=== PATIENT | male | born 1975 | race Caucasian/White ===

== ENCOUNTER 2023-04-19 18:56 | Emergency (ER) | payer OTHER, SELFPAY ==
[2023-04-19 19:05] VITALS: BP 142/105
[2023-04-19 19:28] VITALS: BP 141/92
[2023-04-19 19:40] LABS: % Basophils 0.7 % (0-2); % Eosinophils 2.5 % (0-6); % Immature Granulocytes 0.3 % (0-0.5); % Lymphocytes 16.3 % (20.5-51.1); % Monocytes 8.5 % (1.7-9.3); % Neutrophils 71.7 % (42.2-75.2); Absolute Basophils 0.1 10^3/uL (0-0.2); Absolute Eosinophils 0.2 10^3/uL (0-0.7); Absolute Lymphocytes 1.1 10^3/uL (1.2-3.4); Absolute Monocytes 0.6 10^3/uL (0.1-0.6); Absolute Neutrophils 4.8 10^3/uL (1.4-6.5); Hematocrit 44.9 % (39.0-52.0); Hemoglobin 16.4 g/dL (13.0-18.0); Mean Corp Hgb Conc. 36.5 g/dL (33.0-37.0); Mean Corpuscular Hgb 30.8 pg (27.0-31.0); Mean Corpuscular Volume 84.4 fL (80.0-94.0); Nucleated Red Blood Cells % 0 % (-); Platelet Count 228 10^3/uL (130-400); Red Blood Cell Count 5.32 10^6/uL (4.70-6.10); Red Cell Dist. Width 12.1 % (11.5-14.5); White Blood Cell Count 6.7 10^3/uL (4.8-10.8)
[2023-04-19 19:55] LABS: ALT (SGPT) 48 U/L (0-50); AST (SGOT) 41 U/L (17-59); Albumin 4.8 g/dl (3.5-5.0); Alkaline Phosphatase 84 U/L (38-126); Blood Urea Nitrogen 19 mg/dl (9-20); Calcium 9.9 mg/dl (8.4-10.2); Carbon Dioxide 21 mmol/L (22-30); Chloride 104 mmol/L (98-107); Glucose 98 mg/dl (70-99); Potassium 3.9 mmol/L (3.5-5.1); Sodium 135 mmol/L (135-145); Total Bilirubin 0.7 mg/dl (0.2-1.3); Total Protein 7.9 g/dl (6.3-8.2); eGFR > 60.00
[2023-04-19 20:00] VITALS: BP 134/84
[2023-04-19 20:11] VITALS: BMI 31.9
[2023-04-19 21:00] VITALS: BP 127/86
[2023-04-19] MEDS: TORADOL 30 MG IV (21:32)
[2023-04-19 22:00] VITALS: BP 127/84
--- NOTE | 2023-04-19 22:47 | ED.GENMED ---
History of Present Illness
General
Chief Complaint: Headache
Source: patient
Exam Limitations: none
Time Seen by Provider: 04/19/23 19:07
Nursing documentation reviewed up to this point in time: agreed with
Travel History
Have you had any contact with someone who has COVID-19?: No
Do you have any symptoms of coronavirus? Fever > 100 degrees, chills, cough, shortness of breath, sore throat, loss of taste or smell, muscle aches, or headache?: No
History of Present Illness
History of Present Illness:
Patient to ED with complaint of atyypical head pain 2 days. Denies fever/chills, n/v/d. No blurred vison. Does not typically get headaches. This pain is in back of head. Unrelieved with OTC meds. Brought to ED by spouse for eval.
Past History
Past History
ED Past Medical History: None
ED Past Surgical History: Orthopedic (right achilles rupture repair)
Social History
Tobacco: Non-smoker
Personal: Single
Living: other (with karli)
Employment: Employed
Review of Systems
Review of Systems
Allergies reviewed?: Yes
All Other Systems: ROS reviewed and negative except as documented in HPI and ROS
Constitutional: Reports no symptoms
EENT: Reports no symptoms
Respiratory: Reports no symptoms
Cardiac: Reports no symptoms
ABD/GI: Reports no symptoms
: Reports no symptoms
Musculoskeletal: Reports no symptoms
Skin: Reports no symptoms
Neurological: Reports headache
Psychiatric: Reports no symptoms
Phy Exam
General Physical Exam
General Presentation: well appearing and no apparent distress
General age: appears stated age
General Skin: warm and dry
General Habitus: normal
Eye Exam
Eye Exam: PERRL, EOMI and conjunctiva normal
Neurological Exam
Neurological Exam: alert, oriented x3, no motor deficits, no sensory deficits and normal gait
Musculoskeletal Exam
Musculoskeletal Exam: full ROM and neuro vasc intact
Skin Exam
Skin Exam: normal color, warm/dry and no rash
Psychiatric Exam
Psychiatric Exam: normal mood/affect
Course
Orders/Labs/Results
Orders:
Orders
04/19/23 19:23
CT Head W/o Iv Contrast Urgent
Comment:
Reason For Exam: pain
04/19/23 19:33
Complete Blood Count/With Diff Urgent
Comprehensive Metabolic Panel Urgent
04/19/23 21:24
Ketorolac [Toradol] 30 mg IV NOW STA
Abnormal Lab Results
04/19/23
19:33
Absolute Lymphs (auto) 1.1 L 10^3/uL
(1.2-3.4)
Lymphocytes % 16.3 L %
(20.5-51.1)
Carbon Dioxide 21 L mmol/L
(22-30)
04/19/23 19:33
04/19/23 19:33
Vital Signs
Initial and Last Documented VS:
Initial Vital Signs
Temp Pulse Resp BP Pulse Ox
99.0 F 96 18 142/105 97
04/19/23 19:05 04/19/23 19:05 04/19/23 19:05 04/19/23 19:05 04/19/23 19:05
Last Documented Vital Signs
Temp Pulse Resp BP Pulse Ox
99.0 F 65 19 127/84 97
04/19/23 19:05 04/19/23 22:45 04/19/23 22:45 04/19/23 22:00 04/19/23 19:05
*Radiology
Radiology exam reviewed: radiology read reviewed
*Pulse Oximetry
Patient hypoxic: no
*Critical Care Note
Total Time (30-74mins, 75-104mins- exclusive of procedures): Not Applicable
ED Attending Note
-
Portions of this chart may have been created with voice recognition software.� Occasional wrong word or��sound alike� substitutions may have occurred due to the inherent limitations of voice recognition software.
Discharge Plan
Departure
Patient Disposition: Home (Routine Discharge)
Date of Disposition: 04/19/23
Time of Disposition: 21:39
Patient with high blood pressure during this ER visit?: No
Condition: Good
Covid-19: Not Applicable
Discharge Problem:
Headache
Instructions: Headache, Adult (DC)
Prescriptions:
No Action
hydrocodone-acetaminophen 1 TABLET tablet
1 tab PO Q4HPRN PRN (Reason: pain) Qty: 20 0RF
Referrals:
Abdias Deleon PA-C [Family Provider] - Tomorrow
Interventions
Interventions:
*Risk Screen - Suicide Last Done: 04/19/23 19:05
*General Assessment Last Done: 04/19/23 19:05
*Neglect/Abuse Screening Last Done: 04/19/23 19:05
ED- Fall Risk Assessment Last Done: 04/19/23 19:05
*ED COVID-19 Vaccine History Last Done: 04/19/23 19:05
*Nursing Disposition Last Done: 04/19/23 22:53
ED- Neurological Assessment Last Done: 04/19/23 20:12
Discharge Date and Time
Discharge Date/Time: 04/19/23 22:53
== END 2023-04-19 22:53 | disposition home or self-care (01) ==
LOC: EMR 18:56
PROVIDERS: Nurse Practitioner; EMERGENCY PHYSICIAN Emergency Medicine; FAMILY PHYSICIAN Physician Assistant Medical
DX: R51.9 Headache, unspecified (principal)
CPT/HCPCS: 99284; 96374; 70450; 80053; 85025

== ENCOUNTER 2024-01-17 19:15 | Emergency (ER) | payer OTHER, SELFPAY ==
[2024-01-17 19:16] VITALS: BP 151/101
[2024-01-17 19:37] VITALS: BP 160/95
--- NOTE | 2024-01-17 19:54 | ED.GENMED ---
History of Present Illness
General
Chief Complaint: Musculo-Skeletal Complaint
Time Seen by Provider: 01/17/24 19:34
History of Present Illness
History of Present Illness:
48-year-old male presents to the emergency department for evaluation of nontraumatic right knee and thigh swelling over the past several days. Went to urgent care and had a reportedly normal x-ray. Works primarily at a desk, denies any recent
fitness activities or exercise that may have caused the knee injury. Denies frequent kneeling or squatting. Pain is predominantly to the distal lateral quadriceps
Past History
Past History
ED Past Medical History: None
ED Past Surgical History: Orthopedic (right achilles rupture repair)
Social History
Tobacco: Non-smoker
Personal: Single
Living: other (with fiancee)
Employment: Employed
Review of Systems
Review of Systems
Allergies reviewed?: Yes
All Other Systems: ROS reviewed and negative except as documented in HPI and ROS
Phy Exam
Physical Exam
Physical Exam:
GEN: Well appearing, NAD, WDWN
HEENT: Oral mucosa moist, no scleral icterus
Cardiac: Regular rate
Lung: No respiratory distress, no tachypnea
MSK: Mild soft tissue swelling to the right knee at the distal lateral quadriceps. There is no joint effusion. Range of motion is normal however pain is primarily elicited with knee extension as well as forced knee flexion. No patellar tendon
discomfort on exam
Skin: Good color, no pallor or jaundice, no rashes
Neuro: AO x3, moves all extremities freely
Psych: Calm, cooperative
Course
Orders/Labs/Results
Orders:
Orders
01/17/24 19:54
Ketorolac [Toradol] 30 mg IM NOW STA
Vital Signs
Initial and Last Documented VS:
Initial Vital Signs
Temp Pulse Resp BP Pulse Ox
98 F 90 16 151/101 98
01/17/24 19:16 01/17/24 19:16 01/17/24 19:16 01/17/24 19:16 01/17/24 19:16
Last Documented Vital Signs
Temp Pulse Resp BP Pulse Ox
98.0 F 83 20 160/95 98
01/17/24 20:07 01/17/24 20:07 01/17/24 20:07 01/17/24 20:07 01/17/24 20:07
MDM/Problems Addressed
MDM/Problems Addressed:
This is likely a quadriceps tendinitis versus muscular injury, no knee joint effusion to suggest intra-articular pathology. No erythema or warmth to suggest myositis or cellulitis. Will treat supportively with NSAIDs and local compression,
recommend orthopedic follow-up
*Critical Care Note
Total Time (30-74mins, 75-104mins- exclusive of procedures): Not Applicable
ED Attending Note
-
Portions of this chart may have been created with voice recognition software.� Occasional wrong word or��sound alike� substitutions may have occurred due to the inherent limitations of voice recognition software.
Discharge Plan
Departure
Patient Disposition: Home (Routine Discharge)
Date of Disposition: 01/17/24
Time of Disposition: 19:54
Patient with high blood pressure during this ER visit?: No
Discharge Problem:
Quadriceps tendinitis
Instructions: Tendinopathy (DC)
Prescriptions:
New
celecoxib [Celebrex] 200 mg capsule
200 mg PO BID Qty: 20 0RF
No Action
hydrocodone-acetaminophen 1 TABLET tablet
1 tab PO Q4HPRN PRN (Reason: pain) Qty: 20 0RF
Referrals:
Denis Head MD [Family Provider] -
Alisa Edgar I., DO [Active] -
Interventions
Interventions:
*Risk Screen - Suicide Last Done: 01/17/24 19:16
*General Assessment Last Done: 01/17/24 19:16
*Neglect/Abuse Screening Last Done: 01/17/24 19:16
ED- Fall Risk Assessment Last Done: 01/17/24 20:07
*ED COVID-19 Vaccine History Last Done: 01/17/24 19:38
*Nursing Disposition Last Done: 01/17/24 20:07
ED-Musculoskeletal Assessment Last Done: 01/17/24 19:40
Discharge Date and Time
Discharge Date/Time: 01/17/24 20:08
Print Language: JAPANESE
[2024-01-17] MEDS: TORADOL 30 MG IM (20:00)
[2024-01-17 20:07] VITALS: BP 160/95
== END 2024-01-17 20:08 | disposition home or self-care (01) ==
LOC: EMR 19:15
PROVIDERS: EMERGENCY PHYSICIAN Emergency Medicine; FAMILY PHYSICIAN Family Medicine
DX: M76.9 Unspecified enthesopathy, lower limb, excluding foot (principal)
CPT/HCPCS: 96372; 99284